=== PATIENT | female | born 1955 | race Caucasian/White ===

== ENCOUNTER 2016-11-07 08:59 | Day surgery (SDC) | payer BC ==
--- NOTE | ~2016-11-07 | EGD ---
EGD REPORT [facility] [address] [address] NAME: CORRINE DEL CID : 57 STATUS : REG [facility]#: [id number] AGE: 61 ADM/REG DATE : 11/07/16 MR#: [id number] REPORT SERV DATE: 11/07/16 DICTATED BY: DATE: REPORT STATUS : Draft TRANSCRIBED BY: [employer] DATE: 11/07/16 Endoscopy Center Patient Name: Corrine Del Cid Date of : 1955 Attending MD: FLORIN OBRIEN MD Procedure Date No Time: 11/07/2016 Procedure: Upper GI endoscopy Indications: Heartburn, Suspected esophageal reflux Referring MD: NIC FITZGERALD Medicines: as per anesthesia Complications: No immediate complications. Procedure: Pre-Anesthesia Assessment: - ASA Grade Assessment: II - A patient with mild systemic disease. After obtaining informed consent, the endoscope was passed under direct vision. Throughout the procedure, the patient's blood pressure, pulse, and oxygen saturations were monitored continuously. The GIF [id number] [id number] was introduced through the mouth, and advanced to the third part of duodenum. The upper GI endoscopy was accomplished without difficulty. The patient tolerated the procedure. Findings: The examined esophagus was normal. A small hiatus hernia was present. The examined duodenum was normal. Impression: - Normal esophagus. - Hiatus hernia. - Normal examined duodenum. Recommendation: - Follow an antireflux regimen. - Continue present medications. Procedure Code(s): --- Professional --- 50556, Esophagogastroduodenoscopy, flexible, transoral; diagnostic, including collection of specimen(s) by brushing or washing, when performed (separate procedure) Diagnosis Code(s): --- Professional --- K44.9, Diaphragmatic hernia without obstruction or gangrene R12, Heartburn EGD REPORT [facility] [address] [facility] [place]. [address] NAME: CORRINE DEL CID : 57 STATUS : REG [facility] PAT#: [id number] AGE: 61 ADM/REG DATE : 11/07/16 MR#: [id number] REPORT SERV DATE: 11/07/16 DICTATED BY: DATE: REPORT STATUS : Draft TRANSCRIBED BY: [employer] DATE: 11/07/16 CPT copyright 2013 [employer]. All rights reserved. The codes documented in this report are preliminary and upon paid search manager review may be revised to meet current compliance requirements. FLORIN OBRIEN MD 11/07/2016 10:46 AM This report has been signed electronically. Number of Addenda: 0 Note Initiated On: 11/07/2016 10:32 AM Scope Withdrawal Time 0 hours 0 minutes 0 seconds [address] [facility] [place] [address]
--- NOTE | ~2016-11-07 | EGD ---
EGD REPORT [facility] [address] [address] NAME: CORRINE DEL CID : 57 STATUS : REG [facility]#: [id number] AGE: 61 ADM/REG DATE : 11/07/16 MR#: [id number] REPORT SERV DATE: 11/07/16 DICTATED BY: FLORIN OBRIEN DATE: 11/07/16 REPORT STATUS : Draft TRANSCRIBED BY: [facility] SERVICES DATE: 11/07/16 Endoscopy Center Patient Name: Corrine Del Cid Date of : 1955 Attending MD: FLORIN OBRIEN MD Procedure Date No Time: 11/07/2016 Procedure: Colonoscopy Indications: FH of Colon Cancer - 1st degree relative Referring MD: NIC FITZGERALD Medicines: as per anesthesia Complications: No immediate complications. Procedure: Pre-Anesthesia Assessment: - ASA Grade Assessment: II - A patient with mild systemic disease. After I obtained informed consent, the scope was passed under direct vision. Throughout the procedure, the patient's blood pressure, pulse, and oxygen saturations were monitored continuously. The [facility] [id number] was introduced through the anus and advanced to the cecum, identified by appendiceal orifice and ileocecal valve. The colonoscopy was somewhat difficult due to restricted mobility of the colon, significant looping and a tortuous colon. The patient tolerated the procedure. The quality of the bowel preparation was adequate to identify polyps. Findings: The perianal and digital rectal examinations were normal. Internal hemorrhoids were found during endoscopy and were mild. Impression: - Internal hemorrhoids. Recommendation: - Repeat colonoscopy in 5 years for surveillance. Procedure Code(s): --- Professional --- 16000, Colonoscopy, flexible, proximal to splenic flexure; diagnostic, with or without collection of specimen(s) by brushing or washing, with or without colon decompression (separate procedure) Diagnosis Code(s): --- Professional --- K64.8, Other hemorrhoids Z80.0, Family history of malignant neoplasm of digestive organs EGD REPORT [facility] [address] [facility] [address] NAME: CORRINE DEL CID : [birth year] STATUS : REG [facility]#: [id number] AGE: 61 ADM/REG DATE : 11/07/16 MR#: [id number] REPORT SERV DATE: 11/07/16 DICTATED BY: FLORIN OBRIEN. DATE: 11/07/16 REPORT STATUS : Draft TRANSCRIBED BY: [employer] DATE: 11/07/16 CPT copyright 2013 [employer]. All rights reserved. The codes documented in this report are preliminary and upon hospice clinical manager review may be revised to meet current compliance requirements. FLORIN OBRIEN MD 11/07/2016 11:04 AM This report has been signed electronically. Number of Addenda: 0 Note Initiated On: 11/07/2016 10:29 AM Scope Withdrawal Time 0 hours 6 minutes [address] [place], [place] [address] [id number]
[~2016-11-07 08:59] MED LIST: ASAB PO; ENDOCET1 TA3 PO; ENDOCET1 TAB PO; GARCINIA CAMBOGIA; HARD NAILS PO; LEVOXYL88 MCG PO; PRILO PO; ZOCOR10 PO; ZOCOR20 PO; [UNRECOGNIZED DRUG - OTHER]
== END 2016-11-07 23:59 | disposition home or self-care (01) ==
LOC: DMU 08:59
PROVIDERS: Internal Medicine Gastroenterology
PROC: 0DJD8ZZ Inspection of Lower Intestinal Tract, Via Natural or Artificial Opening Endoscopic (ICD-10-PCS; principal; 2016-11-07 10:00)
PROC: 0DJ08ZZ Inspection of Upper Intestinal Tract, Via Natural or Artificial Opening Endoscopic (ICD-10-PCS; 2016-11-07 10:00)
DX: Z12.11 Encounter for screening for malignant neoplasm of colon (principal); K64.8 Other hemorrhoids; K44.9 Diaphragmatic hernia without obstruction or gangrene; J30.9 Allergic rhinitis, unspecified; R12 Heartburn; E78.00 Pure hypercholesterolemia, unspecified; E03.9 Hypothyroidism, unspecified; M54.5 Low back pain; Z91.013 Allergy to seafood; Z79.82 Long term (current) use of aspirin; Z88.5 Allergy status to narcotic agent; Z80.0 Family history of malignant neoplasm of digestive organs; Z79.899 Other long term (current) drug therapy